=== PATIENT | male | born 1955 | race Caucasian/White ===

== ENCOUNTER 2023-07-22 12:46 | Emergency (ER) | payer MEDICARE, SELFPAY ==
[2023-07-22 12:47] VITALS: BP 122/76; PULSE 79; RESP 18; TEMP 36.7; O2SAT 96
[2023-07-22 15:29] VITALS: BP 135/92; PULSE 81; RESP 18; O2SAT 96
[2023-07-22 16:11] LABS: Appearance Urine Turbid (Clear); Bacteria Urine 4+ /hpf; Bilirubin Urine Negative (Negative); Blood Urine 3+ (Negative); Color Urine Dark Yellow (Yellow); Glucose Urine UA Negative (Negative); Ketones Urine Trace mg/dL (Negative); Leukocyte Esterase Ur 3+ LEU/UL (Negative); Need Manual Microscopic Reviewed; Nitrate Urine Negative (Negative); Non Pathogenic Casts 0-2; Protein Urine 3+ mg/dL (Negative); RBC Urine >100 /hpf (0-2); Squamous Epithelial Cell Urine Occasional /hpf (Few); WBC Urine >100 /hpf; pH Urine 5.5 (5.0-9.0)
[2023-07-22 16:12] LABS: Add Urine Microscopic? YES
[2023-07-22] MEDS: CEPHALEXIN 500 MG CAPSULE PO (16:37)
[2023-07-22 16:38] VITALS: BP 110/83; PULSE 84; RESP 20; O2SAT 95
--- NOTE | 2023-07-22 16:45 | ED.MALEGU ---
HPI - Male Genitourinary General Chief complaint: Urogenital-Male Stated complaint: urinary symptoms Time Seen by Provider: 07/22/23 15:20 History of Present Illness HPI Narrative: Patient is a 67-year-old male history of sarcoidosis presenting with urinary complaints. States for the last week or so he has had urinary frequency and dysuria. States that he feels like he has to pee at least every hour. Complains of mild lower abdominal pain. No fevers, nausea or vomiting. No further complaints. Patient's son states that the patient is currently tapering down steroids for his sarcoidosis. Related Data Allergies Allergy/AdvReac Type Severity Reaction Status Date / Time No Known Allergies Allergy Verified 07/22/23 12:49 Review of Systems Review of Systems: All systems reviewed & are unremarkable except as noted in HPI and below Exam Narrative: GENERAL: Well-appearing, well-nourished, and in no acute distress. HEAD: Normocephalic, atraumatic. EYES: PERRLA and EOMI. ENT: Mucous membranes moist. NECK: Supple. CHEST: No respiratory distress. HEART: Regular rate and rhythm. ABDOMEN: Soft, nontender, nondistended EXTREMITIES: Normal range of motion. SKIN: Warm, dry, no rash. NEURO: Alert and oriented x3. PSYCH: Normal mood and affect. Course Vital Signs Vital signs: Vital Signs Temperature 98.1 F 07/22/23 12:47 Pulse Rate 79 07/22/23 12:47 Respiratory Rate 18 07/22/23 12:47 Blood Pressure 122/76 07/22/23 12:47 Pulse Oximetry 96 07/22/23 12:47 Oxygen Delivery Room Air 07/22/23 12:47 Temperature 98.1 F 07/22/23 12:47 Pulse Rate 79 07/22/23 16:54 Respiratory Rate 19 07/22/23 16:54 Blood Pressure 128/80 07/22/23 16:54 Pulse Oximetry 98 07/22/23 16:54 Oxygen Delivery Room Air 07/22/23 12:47 MDM - Male Genitourinary MDM Narrative Medical decision making narrative: [age] year old male presenting with urinary frequency and dysuria. Vitals are stable. Exam is unremarkable. Abdomen is soft and benign. UA is concerning for UTI. Patient covered with Keflex, will send in for a week. Patient is from out of town, advised that he follow-up with his PCP when he gets home to ensure it has cleared up. Appropriate return precautions given. Patient voiced understanding and is agreeable with plan. Discharged in stable condition. Differential Diagnosis Differential diagnosis: Likely urinary tract infection, urethritis and acute retention of urine Lab Data Attestation: I reviewed the patient's lab results. Labs: Lab Results 07/22/23 Range/Units 15:46 Urine Color Dark yellow (Yellow) Urine Appearance Turbid H (Clear) Urine pH 5.5 (5.0-9.0) Ur Specific Mcroberts 1.020 (1.001-1.035) Urine Protein 3+ H (Negative) mg/dL Urine Glucose (UA) Negative (Negative) mg/dL Urine Ketones Trace H (Negative) mg/dL Ur Blood (Man) 3+ H (Negative) Urine Nitrate Negative (Negative) Urine Bilirubin Negative (Negative) Urine Urobilinogen 1.0 (<2.0) mg/dL Add Ur Microanalysis Reviewed Leukocyte Esterase Rfl 3+ H (Negative) MJ/UL Urine RBC >100 H (0-2) /hpf Urine WBC >100 H /hpf Ur Squamous Epith Cells Occasional (Few) /hpf Urine Bacteria 4+ H /hpf Urine Casts 0-2 Critical Care Time Critical Care Time Critical Care Time: No Discharge Plan Discharge Clinical Impression: Urinary tract infection Patient Disposition: Home, Self-Care Condition: Stable Instructions: Antibiotic Form, Urinary Tract Infection in Men (ED) Additional Instructions: We are treating you for a bladder infection. Please complete the antibiotics as prescribed. Please follow-up with your PCP. If your symptoms worsen or other concerning symptoms arise, please return to the ER. Prescriptions: New cephalexin 500 mg capsule 500 mg PO Q12H 7 Days Qty: 14 0RF Follow-up/Referrals: PHYSICIAN NOT ON STAFF,NONSTAFF [Primary
[2023-07-22 16:54] VITALS: BP 128/80; PULSE 79; RESP 19; O2SAT 98
== END 2023-07-22 16:56 | disposition home or self-care (01) ==
PROVIDERS: Emergency Provider Emergency Medicine
DX: N39.0 Urinary tract infection, site not specified (principal)
CPT/HCPCS: 81001; 87086; 87147; 87181; 87186; 99283; A9270